=== PATIENT | female | born 1980 | race Caucasian/White ===

== ENCOUNTER → 2017-03-12 | Outpatient (CLI) | payer OTHER ==
[2017-03-12 16:07] LABS: Basophils % (A) 0 %; CH 30.4; CHCM 34.5; Eosinophils # (A) 0.2 k/uL (0-0.7); Eosinophils % (A) 3 %; HDW 2.85; HGB 13.1 gm/dL (11.4-16.0); Luc # (Auto) 0.09; Luc % (Auto) 1; Lymphocytes # (A) 1.9 k/uL (1.0-4.8); Lymphocytes % (A) 28 %; MCH 30.5 pg (25.0-35.0); MCHC 34.5 g/dL (31.0-37.0); MCV 88.5 fL (80.0-100.0); Mean Platelet Volume 7.1; Monocytes # (A) 0.2 k/uL (0-1.0); Monocytes % (A) 3 %; Neutrophils # (A) 4.4 k/uL (1.3-7.7); Neutrophils % (A) 65 %; WBC 6.8 k/uL (3.8-10.6); WBC (Perox) 6.75
[2017-03-12 18:29] LABS: Erythrocyte Sedimentation Rate 12 mm/hr (0-20)
== END | disposition home or self-care (01) ==
LOC: LABWHC1 15:44
PROVIDERS: ATTEND Internal Medicine Rheumatology
DX: M05.79 Rheumatoid arthritis with rheumatoid factor of multiple sites without organ or systems involvement (principal); M79.641 Pain in right hand; M79.642 Pain in left hand; Z34.90 Encounter for supervision of normal pregnancy, unspecified, unspecified trimester
CPT/HCPCS: 36415; 82955; 85025; 85652; 86140

== ENCOUNTER 2019-11-21 08:16 | Emergency (ER) | payer OTHER ==
[2019-11-21 08:27] VITALS: BP 143/71; PULSE 86; RESP 16; TEMP 98
--- NOTE | 2019-11-21 09:01 | XR ---
EXAMINATION TYPE: XR knee complete RT DATE OF EXAM: 11/21/2019 CLINICAL HISTORY: Twisting injury with pain TECHNIQUE: Three views of the right knee are obtained. COMPARISON: None. FINDINGS: There is no acute fracture/dislocation evident in right knee mild narrowing medial tibiofe moral and patellofemoral compartments. The overlying soft tissue appears unremarkable. IMPRESSION: There is no acute fracture or dislocation in the right knee.
[2019-11-21] MEDS ORDERED: IBUPROFEN 600 MG TAB PO STA (09:04)
--- NOTE | 2019-11-21 09:14 | ED ---
General Adult HPI - General Chief complaint: Extremity Injury, Lower Stated complaint: knee injury/pain Time Seen by Provider: 11/21/19 08:29 Source: patient, RN notes reviewed, old records reviewed Mode of arrival: wheelchair Limitations: no limitations - History of Present Illness Initial comments: 39-year-old female presents with right knee injury. Patient was dancing with her children, fell and felt a pop in the posterior aspect of her right knee. She's had increased pain and swelling over the past 12 hours. Denies any other injury. Not on anticoagulation. Denies numbness or tingling in the foot. She does have some pain radiating down the calf. She has been ambulatory but has been limping.patient denies .patient denies - Related Data Home Medications Medication Instructions Recorded Confirmed Acetaminophen Tab [Tylenol Tab] 500 mg PO DAILY PRN 04/29/16 06/21/16 Adalimumab [Humira Crohn's] 40 mg SQ Q14D 04/29/16 06/21/16 Pnv,Calcium 72/Iron/Folic Acid 1 tab PO DAILY 04/29/16 06/21/16 [ Plus Tablet] valACYclovir HCL [Valtrex] 500 mg PO DAILY PRN 04/29/16 06/21/16 Cetirizine HCl [Zyrtec] 10 mg PO DAILY 06/21/16 06/21/16 Pseudoephedrine [Sudafed] 30 mg PO Q6H 06/21/16 06/21/16 Ranitidine HCl [Zantac] 150 mg PO HS 06/21/16 06/21/16 Previous Rx's Medication Instructions Recorded Ibuprofen [Motrin] 600 mg PO Q8HR PRN #24 tab 11/21/19 Allergies Allergy/AdvReac Type Severity Reaction Status Date / Time aspirin AdvReac Petechiae Verified 11/21/19 08:27 Review of Systems ROS Statement: Those systems with pertinent positive or pertinent negative responses have been documented in the HPI. ROS Other: All systems not noted in ROS Statement are negative. Past Medical History Past Medical History: Asthma History of Any Multi-Drug Resistant Organisms: None Reported Additional Past Surgical History / Comment(s): ureter stent, nasal surgery, labial hematoma removal Past Psychological History: No Psychological Hx Reported Smoking Status: Never smoker Past Alcohol Use History: None Reported Past Drug Use History: None Reported General Exam Limitations: no limitations General appearance: alert, in no apparent distress Head exam: Present: atraumatic, normocephalic Eye exam: Present: normal appearance, PERRL, EOMI ENT exam: Present: normal exam Neck exam: Present: normal inspection. Absent: tenderness, meningismus Respiratory exam: Present: normal lung sounds bilaterally. Absent: respiratory distress, wheezes Cardiovascular Exam: Present: regular rate, normal rhythm GI/Abdominal exam: Present: soft. Absent: distended, tenderness Extremities exam: Present: other (right knee: Pain with range of motion of the posterior aspect of the knee, distal hamstring, patient does have extension and flexion at the knee. Distal pulses are intact. No effusion, and knee stable) Neurological exam: Present: alert, oriented X3, CN II-XII intact Psychiatric exam: Present: normal affect, normal mood Skin exam: Present: warm, dry, intact. Absent: cyanosis, diaphoretic Course Vital Signs 11/21/19 08:26 Temperature 98.0 F Pulse Rate 86 Respiratory 16 Rate Blood Pressure 143/71 O2 Sat by Pulse 98 Oximetry Medical Decision Making - Medical Decision Making 39-year-old female with posterior knee pain. Patient states she did feel a popping sensation in her knee. Knee is stable on exam with range of motion she has some tenderness in the posterior aspect of the knee. No joint effusion. Distal pulses intact. X-ray negative for fracture or acute bony abnormality. She is placed in knee immobilizer and given Motrin for pain. She will follow-up with orthopedics. Disposition Clinical Impression: Knee sprain Disposition: HOME SELF-CARE Condition: Good Instructions (If sedation given, give patient instructions): Knee Sprain (ED) Prescriptions: Ibuprofen [Motrin] 600 mg PO Q8HR PRN #24 tab PRN Reason: Pain Is patient prescribed a controlled substance at d/c from ED?: No Referrals: Erick Enriquez DO [Primary Care Provider] - 1-2 days Shayan Coleman MD [Medical Doctor] - 1-2 days Time of Disposition: 09:14
== END 2019-11-21 09:20 | disposition home or self-care (01) ==
LOC: EC 08:16
DX: S83.91XA Sprain of unspecified site of right knee, initial encounter (principal); Z88.6 Allergy status to analgesic agent; W18.39XA Other fall on same level, initial encounter; Y93.41 Activity, dancing
CPT/HCPCS: 73562; 99284; 29505; L1830

== ENCOUNTER 2022-10-07 21:57 | Emergency (ER) | payer OTHER ==
[2022-10-07] MEDS ORDERED: MORPHINE SULFATE 4 MG/ML SYRINGE IV STA (22:44)
[2022-10-07] MEDS ORDERED: ONDANSETRON 4 MG/2 ML VIAL IVP STA (22:44)
[2022-10-07] MEDS ORDERED: SODIUM CHLORIDE 0.9% 1,000 ML IV STA (22:44)
--- NOTE | 2022-10-07 22:48 | ED ---
Nausea/Vomiting/Diarrhea HPI - General Chief complaint: Nausea/Vomiting/Diarrhea Stated complaint: ABD pain,vomiting Time Seen by Provider: 10/07/22 22:10 Source: patient Mode of arrival: ambulatory Limitations: no limitations - History of Present Illness Initial comments: This patient is a 41-year-old woman who presents evaluation for upper abdominal pain, nausea and vomiting. Patient states she has been having symptoms like this going on since April. Sudhakar's episode started about 4-5 hours ago after she had eaten. She describes upper abdominal pain that is severe, aching, and has improved somewhat since the onset. She also has a number of rounds of vomiting. No hematemesis. She does occasionally have diarrhea associated with any symptoms. MD complaint: nausea, vomiting, abdominal pain -: month(s) Description of Vomiting: food contents Location: LUQ, RUQ Radiation: none Severity: severe Quality: aching Consistency: now resolved (Partially) Improves with: none Worsens with: eating Associated Symptoms: nausea/vomiting - Related Data Home Medications Medication Instructions Recorded Confirmed Acetaminophen Tab [Tylenol Tab] 500 mg PO DAILY PRN 04/29/16 06/21/16 Adalimumab [Humira Crohn's] 40 mg SQ Q14D 04/29/16 06/21/16 Pnv,Calcium 72/Iron/Folic Acid 1 tab PO DAILY 04/29/16 06/21/16 [ Plus Tablet] valACYclovir HCL [Valtrex] 500 mg PO DAILY PRN 04/29/16 06/21/16 Cetirizine HCl [Zyrtec] 10 mg PO DAILY 06/21/16 06/21/16 Pseudoephedrine [Sudafed] 30 mg PO Q6H 06/21/16 06/21/16 Ranitidine HCl [Zantac] 150 mg PO HS 06/21/16 06/21/16 Previous Rx's Medication Instructions Recorded Ibuprofen [Motrin] 600 mg PO Q8HR PRN #24 tab 11/21/19 Pantoprazole [Protonix] 40 mg PO DAILY #10 tab 10/08/22 Allergies Allergy/AdvReac Type Severity Reaction Status Date / Time aspirin AdvReac Petechiae Verified 10/07/22 22:02 Review of Systems ROS Statement: Those systems with pertinent positive or pertinent negative responses have been documented in the HPI. ROS Other: All systems not noted in ROS Statement are negative. Constitutional: Denies: fever, chills, weakness Respiratory: Denies: cough, dyspnea Cardiovascular: Denies: chest pain, palpitations, edema, syncope Gastrointestinal: Reports: abdominal pain, nausea, vomiting, diarrhea. Denies: constipation, hematemesis, melena, hematochezia Genitourinary: Denies: dysuria, hematuria Musculoskeletal: Denies: back pain Skin: Denies: rash Neurological: Denies: headache, weakness, numbness Past Medical History Past Medical History: Asthma History of Any Multi-Drug Resistant Organisms: None Reported Additional Past Surgical History / Comment(s): ureter stent, nasal surgery, labial hematoma removal Past Psychological History: No Psychological Hx Reported Smoking Status: Never smoker Past Alcohol Use History: Occasional Past Drug Use History: None Reported General Exam Limitations: no limitations General appearance: alert, in no apparent distress Head exam: Present: atraumatic, normocephalic Eye exam: Present: normal appearance. Absent: scleral icterus, conjunctival injection ENT exam: Present: normal oropharynx Neck exam: Present: normal inspection Respiratory exam: Present: normal lung sounds bilaterally. Absent: respiratory distress, wheezes, rales, rhonchi, stridor Cardiovascular Exam: Present: regular rate, normal rhythm, normal heart sounds. Absent: systolic murmur, diastolic murmur, rubs, gallop GI/Abdominal exam: Present: soft, tenderness, normal bowel sounds. Absent: distended, guarding, rebound, rigid, mass, pulsatile mass Extremities exam: Present: normal inspection, normal capillary refill. Absent: pedal edema, calf tenderness Back exam: Present: normal inspection. Absent: CVA tenderness (R), CVA tenderness (L) Neurological exam: Present: alert Skin exam: Present: warm, dry, intact, normal color. Absent: rash Course Vital Signs 10/07/22 10/08/22 22:00 02:19 Temperature 98.6 F Pulse Rate 86 64 Respiratory 20 16 Rate Blood Pressure 149/88 108/76 O2 Sat by Pulse 97 99 Oximetry Medical Decision Making - Lab Data Result diagrams: 10/07/22 22:49 10/07/22 22:49 Lab Results 10/07/22 10/07/22 10/08/22 Range/Units 22:49 22:49 02:19 WBC 10.4 (3.8-10.6) k/uL RBC 4.64 (3.80-5.40) m/uL Hgb 14.0 (11.4-16.0) gm/dL Hct 40.3 (34.0-46.0) % MCV 86.8 (80.0-100.0) fL MCH 30.3 (25.0-35.0) pg MCHC 34.9 (31.0-37.0) g/dL RDW 12.8 (11.5-15.5) % Plt Count 275 (150-450) k/uL MPV 8.4 Neutrophils % 79 % Lymphocytes % 15 % Monocytes % 4 % Eosinophils % 1 % Basophils % 0 % Neutrophils # 8.2 H (1.3-7.7) k/uL Lymphocytes # 1.6 (1.0-4.8) k/uL Monocytes # 0.4 (0-1.0) k/uL Eosinophils # 0.1 (0-0.7) k/uL Basophils # 0.0 (0-0.2) k/uL Sodium 135 L (137-145) mmol/L Potassium 4.1 (3.5-5.1) mmol/L Chloride 104 (98-107) mmol/L Carbon Dioxide 23 (22-30) mmol/L Anion Gap 8 mmol/L BUN 17 (7-17) mg/dL Creatinine 0.74 (0.52-1.04) mg/dL Est GFR (CKD-EPI)AfAm >90 (>60 ml/min/1.73 sqM) Est GFR (CKD-EPI)NonAf >90 (>60 ml/min/1.73 sqM) Glucose 117 H (74-99) mg/dL Calcium 9.1 (8.4-10.2) mg/dL Total Bilirubin 0.3 (0.2-1.3) mg/dL AST 26 (14-36) U/L ALT 23 (4-34) U/L Alkaline Phosphatase 74 (38-126) U/L Total Protein 7.5 (6.3-8.2) g/dL Albumin 4.4 (3.5-5.0) g/dL Amylase 61 (30-110) U/L Lipase 44 (23-300) U/L Urine Color Yellow Urine Appearance Turbid H (Clear) Urine pH 5.5 (5.0-8.0) Ur Specific [place] 1.032 (1.001-1.035) Urine Protein 1+ H (Negative) Urine Glucose (UA) Negative (Negative) Urine Ketones Trace H (Negative) Urine Blood Negative (Negative) Urine Nitrite Negative (Negative) Urine Bilirubin Negative (Negative) Urine Urobilinogen <2.0 (<2.0) mg/dL Ur Leukocyte Esterase Negative (Negative) Urine RBC 1 (0-5) /hpf Urine WBC 8 H (0-5) /hpf Ur Squamous Epith Cells 34 H (0-4) /hpf Urine Bacteria Moderate H (None) /hpf Urine Mucus Many H (None) /hpf Disposition Clinical Impression: Abdominal pain Disposition: HOME SELF-CARE Condition: Good Instructions (If sedation given, give patient instructions): Abdominal Pain (ED) Additional Instructions: As we discussed, follow-up with the surgeon to discuss having a HIDA scan. Return if there is worsening in anyway. Prescriptions: Pantoprazole [Protonix] 40 mg PO DAILY #10 tab Is patient prescribed a controlled substance at d/c from ED?: No Referrals: Erick Enriquez DO [Primary Care Provider] - 1-2 days Blayne Hdz MD [STAFF PHYSICIAN] - 1-2 days
[2022-10-07 23:12] LABS: Basophils % (A) 0 %; Eosinophils # (A) 0.1 k/uL (0-0.7); Eosinophils % (A) 1 %; HCT 40.3 % (34.0-46.0); Lymphocytes # (A) 1.6 k/uL (1.0-4.8); Lymphocytes % (A) 15 %; MCH 30.3 pg (25.0-35.0); MCHC 34.9 g/dL (31.0-37.0); MCV 86.8 fL (80.0-100.0); Mean Platelet Volume 8.4; Monocytes # (A) 0.4 k/uL (0-1.0); Monocytes % (A) 4 %; Neutrophils # (A) 8.2 k/uL (1.3-7.7); Neutrophils % (A) 79 %; Platelet Count 275 k/uL (150-450); RBC 4.64 m/uL (3.80-5.40); RDW 12.8 % (11.5-15.5); WBC 10.4 k/uL (3.8-10.6)
[2022-10-07 23:41] LABS: ALT 23 U/L (4-34); AST 26 U/L (14-36); African American GFR (CKD) >90 (>60 ml/min/1.73 sqM); Albumin 4.4 g/dL (3.5-5.0); Alkaline Phosphatase 74 U/L (38-126); Amylase 61 U/L (30-110); Anion Gap 8 mmol/L; Blood Urea Nitrogen 17 mg/dL (7-17); Calcium 9.1 mg/dL (8.4-10.2); Carbon Dioxide 23 mmol/L (22-30); Chloride 104 mmol/L (98-107); Glucose 117 mg/dL (74-99); Lipase 44 U/L (23-300); Non-African American GFR(CKD) >90 (>60 ml/min/1.73 sqM); Potassium 4.1 mmol/L (3.5-5.1); Sodium 135 mmol/L (137-145); Total Bilirubin 0.3 mg/dL (0.2-1.3); Total Protein 7.5 g/dL (6.3-8.2)
--- NOTE | 2022-10-08 00:02 | US ---
EXAMINATION TYPE: US abdomen limited DATE OF EXAM: 10/07/2022 COMPARISON: NONE CLINICAL HISTORY: attention RUQ. RUQ pain x 6 months, worsened 5 hours ago TECHNIQUE: Multiple sonographic images of the right upper quadrant are obtained. FINDINGS: EXAM MEASUREMENTS: Liver Length: 15.8 cm Gallbladder Wall: 0.18 cm CBD: 0.29 cm Right Kidney: 9.6 x 3.9 x 4.3 cm SCULPTURE CONSERVATOR NOTES: Pancreas: Obscured by bowel gas Liver: Heterogeneous Gallbladder: One gallstone seen measuring 1.5cm Evidence for sonographic Meléndez's sign: No CBD: wnl Right Kidney: wnl IMPRESSION: There is single large gallstone. No dilated ducts.
[2022-10-08] MEDS ORDERED: MAG HYDROX/AL HYDROX/SIMETH 30 ML, HYOSCYAMINE ELIXIR 10 ML, LIDOCAINE VISCOUS 2% 10 ML PO STA ×3 (00:14)
[2022-10-08 02:21] VITALS: RESP 16
[2022-10-08] MEDS ORDERED: ONDANSETRON 4 MG/2 ML VIAL IVP STA (02:36)
[2022-10-08 02:58] LABS: Appearance,Urine Turbid (Clear); Bacteria,Urine Moderate /hpf; Bilirubin,Urine Negative (Negative); Blood,Urine Negative (Negative); Color,Urine Yellow; Glucose,Urine (UA) Negative (Negative); Ketones,Urine Trace (Negative); Leukocyte Esterase,Urine Negative (Negative); Mucus,Urine Many /hpf; Nitrite,Urine Negative (Negative); PH, Urine 5.5 (5.0-8.0); Protein,Urine 1+ (Negative); RBC,Urine 1 /hpf (0-5); Specific Gravity,Urine 1.032 (1.001-1.035); Squamous Epithelial Cell,Urine 34 /hpf (0-4); Urobilinogen,Urine <2.0 mg/dL (<2.0); WBC,Urine 8 /hpf (0-5)
[2022-10-08] MEDS ORDERED: SODIUM CHLORIDE 0.9% 1,000 ML IV ONE (03:45)
[2022-10-08 06:07] VITALS: BP 115/82; PULSE 72; TEMP 97.8
== END 2022-10-08 06:09 | disposition home or self-care (01) ==
LOC: EC 21:57
DX: R10.10 Upper abdominal pain, unspecified (principal); J45.909 Unspecified asthma, uncomplicated; Z88.6 Allergy status to analgesic agent
CPT/HCPCS: 36415; 80053; 82150; 83690; 85025; 81001; 76705; 99284; 96374; 96375; 96376; 96361 ×3; J2270; J2405 ×2

== ENCOUNTER 2022-10-19 07:10 | Day surgery (SDC) | payer OTHER ==
[2022-10-16 10:12] VITALS: BMI 32.1
[~2022-10-19 07:10] MED LIST: ACETAMINOPHEN TAB 500 MG TAB PO PRN; DEXAMETHASONE SOD PHOSPHATE 4 MG/ML 1 ML VIAL IV ONE; HEPARIN SODIUM,PORCINE/PF 5,000 UNIT/0.5 ML SYRINGE SQ PRN; HYDROmorphone 0.5 MG/0.5 ML SYRINGE IVP PRN; LIDOCAINE 1% (10MG/ML) FOR IV START INTRADERMA PRN; MIDAZOLAM 2 MG/2 ML VIAL IV PRN; ONDANSETRON 4 MG/2 ML VIAL IVP ONE
[2022-10-19] MEDS ORDERED: LACTATED RINGERS 1,000 ML IV ONE ×2 (07:26→11:03)
[2022-10-19] MEDS ORDERED: DEXAMETHASONE SOD PHOSPHATE 4 MG/ML 1 ML VIAL IVP ONE (07:49)
[2022-10-19] MEDS ORDERED: ONDANSETRON 4 MG/2 ML VIAL IVP ONE ×2 (07:50→10:40)
--- NOTE | 2022-10-19 07:54 | P.GSHP ---
History of Present Illness H&P Date: 10/19/22 Chief Complaint: Right upper quadrant pain, gallstones This is a 42-year-old female who's had complaints of right upper quadrant pain. She is recently found have gallstones. She presents today for laparoscopic cholecystectomy Past Medical History Past Medical History: Asthma, Fibromyalgia, GERD/Reflux, Osteoarthritis (OA) Additional Past Medical History / Comment(s): one gallstone, hx ulcer, hiatal hernia, diarrhea/constipation, hx kidney stones, hx frequent UTI's, tinnitus History of Any Multi-Drug Resistant Organisms: None Reported Past Surgical History: Section, Tubal Ligation Additional Past Surgical History / Comment(s): ureter stent, nasal surgery, labial hematoma removal, lasik eye surgery Past Anesthesia/Blood Transfusion Reactions: Previous Problems w/ Anesthesia, Postoperative Nausea & Vomiting (PONV) Additional Past Anesthesia/Blood Transfusion Reaction / Comment(s): spinal with C/S "vomiting, passed out, heart rate dropped-needed resuscitation" Smoking Status: Never smoker - Past Family History Mother Family Medical History: Cancer Additional Family Medical History / Comment(s): lung Medications and Allergies Home Medications Medication Instructions Recorded Confirmed Type valACYclovir HCL [Valtrex] 500 mg PO BID PRN 04/29/16 10/19/22 History Cetirizine HCl [Zyrtec] 10 mg PO DAILY 06/21/16 10/19/22 History ALPRAZolam [Xanax] 0.5 mg PO DAILY PRN 10/16/22 10/19/22 History Ibuprofen [Motrin] 800 mg PO DAILY PRN 10/16/22 10/19/22 History Multivitamins, Thera [Multivitamin 1 tab PO DAILY 10/16/22 10/19/22 History (formulary)] Sertraline [Zoloft] 100 mg PO HS 10/16/22 10/19/22 History Allergies Allergy/AdvReac Type Severity Reaction Status Date / Time aspirin AdvReac Petechiae Verified 10/19/22 07:35 Surgical - Exam Vital Signs Temp Pulse Resp BP Pulse Ox 97.8 F 69 16 115/83 98 10/19/22 07:30 10/19/22 07:30 10/19/22 07:30 10/19/22 07:30 10/19/22 07:30 - General well developed, well nourished, no distress - Eyes PERRL - ENT normal pinna - Neck no masses - Respiratory normal expansion - Cardiovascular Rhythm: regular - Abdomen Abdomen: soft, non tender Assessment and Plan Assessment: Right upper quadrant pain Cholelithiasis We'll perform laparoscopic cholecystectomy
[2022-10-19] MEDS ORDERED: KETOROLAC 15 MG/ML 1 ML VIAL ONE (07:59)
[2022-10-19] MEDS ORDERED: PROPOFOL 10 MG/ML 20 ML VIAL IV ONE (07:59)
[2022-10-19] MEDS ORDERED: LIDOCAINE 2% INJ 20 MG/ML (2 ML VIAL) ONE (07:59)
[2022-10-19] MEDS ORDERED: ATROPINE SULFATE 0.1 MG/ML 10ML SYRINGE ONE (07:59)
[2022-10-19] MEDS ORDERED: NEOSTIGMINE 1 MG/ML 10 ML VIAL ONE (07:59)
[2022-10-19] MEDS ORDERED: ROCURONIUM 10 MG/ML (5 ML VIAL) IV ONE (07:59)
[2022-10-19] MEDS ORDERED: MIDAZOLAM 2 MG/2 ML VIAL ONE (07:59)
[2022-10-19] MEDS ORDERED: SUCCINYLCHOLINE CHLORIDE 200 MG/10 ML VIAL IV ONE (07:59)
[2022-10-19] MEDS ORDERED: fentaNYL (PF) 50 MCG/ML 2 ML AMP ONE (07:59)
[2022-10-19] MEDS ORDERED: GLYCOPYRROLATE 0.2 MG/ML 2 ML VIAL ONE (07:59)
[2022-10-19] MEDS ORDERED: BUPIVACAIN-EPI 0.25%-1:200,000 30 ML VIAL SQ ONE ×2 (08:00→08:19)
--- NOTE | 2022-10-19 08:40 | P.OP ---
Date of Procedure: 10/19/22 Preoperative Diagnosis: Cholecystitis Cholelithiasis Postoperative Diagnosis: Cholecystitis Cholelithiasis Procedure(s) Performed: Laparoscopic cholecystectomy Anesthesia: BRIAN Surgeon: Blayne Hdz Pathology: other (Gallbladder) Condition: stable Disposition: PACU Description of Procedure: TThe patient was placed on the operating table. The patient received a general endotracheal tube anesthesia. The patients abdomen was prepped and draped in the usual sterile fashion. Through an infraumbilical stab incision, the fascia of the anterior abdominal wall was grasped with a pair of Kochers and then the Veress needle was placed in the peritoneal cavity. Position of the Veress needle was confirmed with positive drop test. The abdomen was then insufflated. After adequate insufflation, the 10 mm trocar was placed in the peritoneal cavity. Following this the laparoscope was placed in the peritoneal cavity. The patient was placed in the head-up, right side up position and then a 5 mm trocar was placed in the right lateral and right subcostal position under direct visualization. A 8 mm trocar was placed in the epigastric position. The gallbladder was grasped in the fundus and infundibulum. Traction on the gallbladder was placed in the lateral and the cephalad positions. The triangle of Calot was visualized.. The cystic duct was bluntly dissected until the union of the cystic duct and common bile duct was seen. A critical view of safety was achieved. The cystic duct was then divided and sealed with the Harmonic scissors. A PDS Endoloop was then placed throughout the cystic duct stump. The cystic artery divided and sealed with the Harmonic scissors. The gallbladder was then removed from the liver bed using Harmonic scissors. The gallbladder was then extracted through the epigastric port site. Operative field was checked for any bleeding spots and Harmonic scissors was used to coagulate the liver bed. The abdomen was irrigated. The trocars were removed. The skin was closed using interrupted 3-0 Vicryl suture. Dermabond dressing were applied. The patient tolerated the procedure well.
[2022-10-19 08:54] VITALS: TEMP 97.2
[2022-10-19] MEDS: LACTATED RINGERS 1,000 ML IV SCH ×2 (09:00→09:16)
[2022-10-19] MEDS ORDERED: SIMETHICONE 80 MG CHEWABLE PO ONE (09:35)
[2022-10-19 09:45] VITALS: RESP 16
[2022-10-19] MEDS ORDERED: ONDANSETRON 4 MG/2 ML VIAL ONE (10:35)
[2022-10-19 11:29] VITALS: BP 135/77; PULSE 72
== END 2022-10-19 12:07 | disposition home or self-care (01) ==
LOC: OR 07:10
PROVIDERS: ATTEND Surgery
DX: K80.10 Calculus of gallbladder with chronic cholecystitis without obstruction (principal); M19.90 Unspecified osteoarthritis, unspecified site; M79.7 Fibromyalgia; J45.909 Unspecified asthma, uncomplicated
CPT/HCPCS: 81025; 47562; J1100; J0690; J2405; J1170; J1644; 88304

== ENCOUNTER 2022-10-24 02:27 | Emergency (ER) | payer OTHER ==
[2022-10-24 02:43] VITALS: RESP 16
[2022-10-24] MEDS ORDERED: SODIUM CHLORIDE 0.9% 1,000 ML IV STA (02:59)
[2022-10-24] MEDS ORDERED: methylPREDNISolone SOD SUCCI 125 MG/2 ML VIAL IV STA (03:02)
--- NOTE | 2022-10-24 03:02 | ED ---
General Adult HPI - General Chief complaint: Fever Stated complaint: Post-op fever, rash Time Seen by Provider: 10/24/22 02:36 Source: patient, RN notes reviewed Mode of arrival: ambulatory Limitations: no limitations - History of Present Illness Initial comments: 42-year-old female presents to the emergency Department with complaints of fever and rash, onset this evening. States she also has a sore throat and some congestion. Patient reports she had her gallbladder removed on Wednesday and has been doing very well since. States she has been able to get out of the house therefore reports likely sick contacts. Has taken two doses of allergy medicine for the rash today with improvement in itching. Denies difficulty swallowing, chest pain, shortness of breath, abdominal discomfort, nausea, vomiting, diarrhea, or dysuria. - Related Data Home Medications Medication Instructions Recorded Confirmed valACYclovir HCL [Valtrex] 500 mg PO BID PRN 04/29/16 10/19/22 Cetirizine HCl [Zyrtec] 10 mg PO DAILY 06/21/16 10/19/22 ALPRAZolam [Xanax] 0.5 mg PO DAILY PRN 10/16/22 10/19/22 Ibuprofen [Motrin] 800 mg PO DAILY PRN 10/16/22 10/19/22 Multivitamins, Thera [Multivitamin 1 tab PO DAILY 10/16/22 10/19/22 (formulary)] Sertraline [Zoloft] 100 mg PO HS 10/16/22 10/19/22 Previous Rx's Medication Instructions Recorded Acetaminophen Tab [Tylenol] 650 mg PO Q6H #30 tab 10/19/22 Docusate [Colace] 100 mg PO BID #20 capsule 10/19/22 Ibuprofen [Motrin] 600 mg PO Q6HR PRN #40 tab 10/19/22 oxyCODONE HCL [OxyIR] 5 mg PO Q6H PRN 3 Days #10 tab 10/19/22 predniSONE 50 mg PO DAILY #5 tab 10/24/22 Allergies Allergy/AdvReac Type Severity Reaction Status Date / Time aspirin AdvReac Petechiae Verified 10/24/22 02:30 Review of Systems ROS Statement: Those systems with pertinent positive or pertinent negative responses have been documented in the HPI. ROS Other: All systems not noted in ROS Statement are negative. Past Medical History Past Medical History: Asthma, Fibromyalgia, GERD/Reflux, Osteoarthritis (OA) Additional Past Medical History / Comment(s): one gallstone, hx ulcer, hiatal hernia, diarrhea/constipation, hx kidney stones, hx frequent UTI's, tinnitus History of Any Multi-Drug Resistant Organisms: None Reported Past Surgical History: Section, Cholecystectomy, Tubal Ligation Additional Past Surgical History / Comment(s): ureter stent, nasal surgery, labial hematoma removal, lasik eye surgery Past Anesthesia/Blood Transfusion Reactions: Previous Problems w/ Anesthesia, Postoperative Nausea & Vomiting (PONV) Additional Past Anesthesia/Blood Transfusion Reaction / Comment(s): spinal with C/S "vomiting, passed out, heart rate dropped-needed resuscitation" Past Psychological History: Anxiety Smoking Status: Never smoker Past Alcohol Use History: None Reported Past Drug Use History: None Reported - Past Family History Mother Family Medical History: Cancer Additional Family Medical History / Comment(s): lung General Exam Limitations: no limitations General appearance: alert, in no apparent distress ENT exam: Present: normal exam, normal oropharynx, mucous membranes moist, TM's normal bilaterally Expanded Throat exam: normal inspection. negative: tonsillar erythema Neck exam: Present: normal inspection, full ROM. Absent: tenderness, meningismus, lymphadenopathy Respiratory exam: Present: normal lung sounds bilaterally. Absent: respiratory distress, wheezes, rales, rhonchi, stridor Cardiovascular Exam: Present: normal rhythm, tachycardia, normal heart sounds. Absent: systolic murmur, diastolic murmur, rubs, gallop, clicks GI/Abdominal exam: Present: soft, normal bowel sounds, other (three incision site remain covered with adhesive dressings. Surrounding skin is non- erythematous. Patient does have scattered macular rash on abdomen and anterior thighs). Absent: distended, tenderness, guarding, rebound, rigid Extremities exam: Present: normal inspection, full ROM, normal capillary refill. Absent: tenderness, pedal edema, joint swelling, calf tenderness Back exam: Absent: CVA tenderness (R), CVA tenderness (L) Neurological exam: Present: alert, oriented X3, CN II-XII intact Psychiatric exam: Present: normal affect, normal mood Skin exam: Present: warm, dry, normal color, rash Expanded Type of lesion: Present: rash Distribution of rash: chest, abdomen, other (bilateral anterior upper legs) Description of rash: Present: macular Course Vital Signs 11/26/22 11/26/22 02:30 02:41 Temperature 98.8 F 100 F H Pulse Rate 117 H 100 Respiratory 18 16 Rate Blood Pressure 120/76 111/79 O2 Sat by Pulse 98 98 Oximetry - Reevaluation(s) Reevaluation #1: 10/24/22 03:45 Upon reevaluation, patient is resting at this time. States she is feeling somewhat improved. Discussed results of laboratory findings available at this point. She is currently on her menstrual cycle which accounts for the large amount of blood in urinalysis. The remainder of laboratory studies are pending. We will reevaluate shortly. Medical Decision Making - Medical Decision Making This is a nontoxic, well-appearing 42-year-old female who presents to the emergency department in no acute distress. She is postop cholecystectomy with onset of fever and rash this evening. Additional symptoms include nasal congestion and pharyngitis. Upon exam, patient has a scattered macular rash light pink in color on chest, abdomen, and upper thighs. Her abdomen is soft and nontender. Incision sites are not erythematous. Laboratory studies were obtained and show mild dehydration with a sodium 134. Patient was given 1 L of IV fluids and a dose of Solu-Medrol for her rash. Motrin was given prior to departure for elevated temperature. Is scheduled to follow up with her surgeon on Wednesday. Strict return parameters were discussed with patient. She verbalizes understanding and agrees with this plan. Attending: Merry. - Lab Data Result diagrams: 10/24/22 03:15 10/24/22 03:15 Lab Results 10/24/22 10/24/22 10/24/22 Range/Units 03:14 03:14 03:15 WBC 9.4 (3.8-10.6) k/uL RBC 4.17 (3.80-5.40) m/uL Hgb 12.7 (11.4-16.0) gm/dL Hct 36.4 (34.0-46.0) % MCV 87.3 (80.0-100.0) fL MCH 30.5 (25.0-35.0) pg MCHC 34.9 (31.0-37.0) g/dL RDW 13.2 (11.5-15.5) % Plt Count 195 (150-450) k/uL MPV 8.5 Neutrophils % 86 % Lymphocytes % 7 % Monocytes % 2 % Eosinophils % 4 % Basophils % 0 % Neutrophils # 8.1 H (1.3-7.7) k/uL Lymphocytes # 0.6 L (1.0-4.8) k/uL Monocytes # 0.2 (0-1.0) k/uL Eosinophils # 0.4 (0-0.7) k/uL Basophils # 0.0 (0-0.2) k/uL Sodium (137-145) mmol/L Potassium (3.5-5.1) mmol/L Chloride (98-107) mmol/L Carbon Dioxide (22-30) mmol/L Anion Gap mmol/L BUN (7-17) mg/dL Creatinine (0.52-1.04) mg/dL Est GFR (CKD-EPI)AfAm (>60 ml/min/1.73 sqM) Est GFR (CKD-EPI)NonAf (>60 ml/min/1.73 sqM) Glucose (74-99) mg/dL Calcium (8.4-10.2) mg/dL Total Bilirubin (0.2-1.3) mg/dL AST (14-36) U/L ALT (4-34) U/L Alkaline Phosphatase (38-126) U/L Total Protein (6.3-8.2) g/dL Albumin (3.5-5.0) g/dL Urine Color Urine Appearance (Clear) Urine pH (5.0-8.0) Ur Specific [place] (1.001-1.035) Urine Protein (Negative) Urine Glucose (UA) (Negative) Urine Ketones (Negative) Urine Blood (Negative) Urine Nitrite (Negative) Urine Bilirubin (Negative) Urine Urobilinogen (<2.0) mg/dL Ur Leukocyte Esterase (Negative) Urine RBC (0-5) /hpf Urine WBC (0-5) /hpf Ur Squamous Epith Cells (0-4) /hpf Urine Bacteria (None) /hpf Urine Mucus (None) /hpf Coronavirus (PCR) Not Detected (Not Detectd) Influenza Type A RNA Not Detected (Not Detectd) Influenza Type B (PCR) Not Detected (Not Detectd) 10/24/22 10/24/22 Range/Units 03:15 03:17 WBC (3.8-10.6) k/uL RBC (3.80-5.40) m/uL Hgb (11.4-16.0) gm/dL Hct (34.0-46.0) % MCV (80.0-100.0) fL MCH (25.0-35.0) pg MCHC (31.0-37.0) g/dL RDW (11.5-15.5) % Plt Count (150-450) k/uL MPV Neutrophils % % Lymphocytes % % Monocytes % % Eosinophils % % Basophils % % Neutrophils # (1.3-7.7) k/uL Lymphocytes # (1.0-4.8) k/uL Monocytes # (0-1.0) k/uL Eosinophils # (0-0.7) k/uL Basophils # (0-0.2) k/uL Sodium 134 L (137-145) mmol/L Potassium 4.4 (3.5-5.1) mmol/L Chloride 102 (98-107) mmol/L Carbon Dioxide 26 (22-30) mmol/L Anion Gap 6 mmol/L BUN 13 (7-17) mg/dL Creatinine 0.79 (0.52-1.04) mg/dL Est GFR (CKD-EPI)AfAm >90 (>60 ml/min/1.73 sqM) Est GFR (CKD-EPI)NonAf >90 (>60 ml/min/1.73 sqM) Glucose 98 (74-99) mg/dL Calcium 9.3 (8.4-10.2) mg/dL Total Bilirubin 0.3 (0.2-1.3) mg/dL AST 36 (14-36) U/L ALT 52 H (4-34) U/L Alkaline Phosphatase 83 (38-126) U/L Total Protein 6.9 (6.3-8.2) g/dL Albumin 4.1 (3.5-5.0) g/dL Urine Color Yellow Urine Appearance Clear (Clear) Urine pH 6.0 (5.0-8.0) Ur Specific [place] 1.016 (1.001-1.035) Urine Protein Trace H (Negative) Urine Glucose (UA) Negative (Negative) Urine Ketones Negative (Negative) Urine Blood Large H (Negative) Urine Nitrite Negative (Negative) Urine Bilirubin Negative (Negative) Urine Urobilinogen <2.0 (<2.0) mg/dL Ur Leukocyte Esterase Negative (Negative) Urine RBC >182 H (0-5) /hpf Urine WBC 9 H (0-5) /hpf Ur Squamous Epith Cells 1 (0-4) /hpf Urine Bacteria Rare H (None) /hpf Urine Mucus Rare H (None) /hpf Coronavirus (PCR) (Not Detectd) Influenza Type A RNA (Not Detectd) Influenza Type B (PCR) (Not Detectd) Disposition Clinical Impression: Fever, Viral upper respiratory infection Disposition: HOME SELF-CARE Condition: Stable Instructions (If sedation given, give patient instructions): Fever in Adults (ED), Viral Syndrome (ED) Additional Instructions: Continue taking home medications as prescribed. Both Tylenol and Motrin can be used to treat fever. You are being prescribed a steroid for the rash. Continue to carefully monitor your temperature and track symptoms. If you develop any abdominal pain, chest pain, or difficulty breathing return to the emergency department immediately. Keep your follow-up appointment with Dr. Hdz as scheduled on Wednesday. Return to the emergency department with any new, concerning, or worsening condition. Prescriptions: predniSONE 50 mg PO DAILY #5 tab Is patient prescribed a controlled substance at d/c from ED?: No Referrals: Erick Enriquez DO [Primary Care Provider] - 1-2 days Time of Disposition: 04:37
[2022-10-24 03:32] LABS: Appearance,Urine Clear (Clear); Bacteria,Urine Rare /hpf; Bilirubin,Urine Negative (Negative); Blood,Urine Large (Negative); Color,Urine Yellow; Glucose,Urine (UA) Negative (Negative); Ketones,Urine Negative (Negative); Leukocyte Esterase,Urine Negative (Negative); Mucus,Urine Rare /hpf; Nitrite,Urine Negative (Negative); Protein,Urine Trace (Negative); RBC,Urine >182 /hpf (0-5); Specific Gravity,Urine 1.016 (1.001-1.035); Squamous Epithelial Cell,Urine 1 /hpf (0-4); Urobilinogen,Urine <2.0 mg/dL (<2.0); WBC,Urine 9 /hpf (0-5)
[2022-10-24 03:32] LABS: Basophils % (A) 0 %; Eosinophils # (A) 0.4 k/uL (0-0.7); Eosinophils % (A) 4 %; HCT 36.4 % (34.0-46.0); HGB 12.7 gm/dL (11.4-16.0); Lymphocytes # (A) 0.6 k/uL (1.0-4.8); Lymphocytes % (A) 7 %; MCH 30.5 pg (25.0-35.0); MCHC 34.9 g/dL (31.0-37.0); MCV 87.3 fL (80.0-100.0); Mean Platelet Volume 8.5; Monocytes # (A) 0.2 k/uL (0-1.0); Monocytes % (A) 2 %; Neutrophils # (A) 8.1 k/uL (1.3-7.7); Neutrophils % (A) 86 %; Platelet Count 195 k/uL (150-450); RBC 4.17 m/uL (3.80-5.40); RDW 13.2 % (11.5-15.5); WBC 9.4 k/uL (3.8-10.6)
[2022-10-24 03:51] LABS: ALT 52 U/L (4-34); AST 36 U/L (14-36); African American GFR (CKD) >90 (>60 ml/min/1.73 sqM); Albumin 4.1 g/dL (3.5-5.0); Alkaline Phosphatase 83 U/L (38-126); Anion Gap 6 mmol/L; Blood Urea Nitrogen 13 mg/dL (7-17); Calcium 9.3 mg/dL (8.4-10.2); Carbon Dioxide 26 mmol/L (22-30); Chloride 102 mmol/L (98-107); Glucose 98 mg/dL (74-99); Non-African American GFR(CKD) >90 (>60 ml/min/1.73 sqM); Potassium 4.4 mmol/L (3.5-5.1); Sodium 134 mmol/L (137-145); Total Bilirubin 0.3 mg/dL (0.2-1.3); Total Protein 6.9 g/dL (6.3-8.2)
[2022-10-24] MEDS ORDERED: IBUPROFEN 600 MG TAB PO STA (04:32)
[2022-10-24 04:45] VITALS: BP 115/78; PULSE 71; TEMP 98.9
== END 2022-10-24 04:51 | disposition home or self-care (01) ==
LOC: EC 02:27
DX: J06.9 Acute upper respiratory infection, unspecified (principal); F41.9 Anxiety disorder, unspecified; J45.909 Unspecified asthma, uncomplicated; M19.90 Unspecified osteoarthritis, unspecified site; Z88.6 Allergy status to analgesic agent; Z20.822 Contact with and (suspected) exposure to COVID-19; Z79.1 Long term (current) use of non-steroidal anti-inflammatories (NSAID)
CPT/HCPCS: 99283; 96374; 96361; 36415; 80053; 85025; 81001; 87040; 87502; 87635; J2930

== ENCOUNTER 2022-12-09 03:25 | Emergency (ER) | payer OTHER ==
[2022-12-09 03:35] VITALS: PULSE 77; TEMP 97.8
--- NOTE | 2022-12-09 03:46 | ED ---
Recheck HPI - General Chief Complaint: Abdominal Pain Stated Complaint: Abd Pain Time Seen by Provider: 12/09/22 03:30 Source: patient, RN notes reviewed, old records reviewed Mode of arrival: ambulatory Limitations: no limitations - History of Present Illness Initial Comments: This is a 42-year-old female to the emergency department for evaluation today. States she is presenting for evaluation regards to abdominal pain. Believes that it may be her gallbladder causing his pain will she has had recent gallbladder surgery.pain started yesterday yesterday generalized and diffuse in the middle of her belly. MD Complaint: other (Worsen prior symptoms, prior gallbladder removal) -: days(s) Returns Today for: Called Because of Abnormal Lab/Test, persistent/worsening pain related to initial visit Symptoms Since Prior Visit: worsening pain Context: planned re-check Associated Symptoms: abdominal pain Treatments Prior to Arrival: Given Pain Meds on - Related Data Home Medications Medication Instructions Recorded Confirmed valACYclovir HCL [Valtrex] 500 mg PO BID PRN 04/29/16 10/19/22 Cetirizine HCl [Zyrtec] 10 mg PO DAILY 06/21/16 10/19/22 ALPRAZolam [Xanax] 0.5 mg PO DAILY PRN 10/16/22 10/19/22 Ibuprofen [Motrin] 800 mg PO DAILY PRN 10/16/22 10/19/22 Multivitamins, Thera [Multivitamin 1 tab PO DAILY 10/16/22 10/19/22 (formulary)] Sertraline [Zoloft] 100 mg PO HS 10/16/22 10/19/22 Previous Rx's Medication Instructions Recorded Acetaminophen Tab [Tylenol] 650 mg PO Q6H #30 tab 10/19/22 Docusate [Colace] 100 mg PO BID #20 capsule 10/19/22 Ibuprofen [Motrin] 600 mg PO Q6HR PRN #40 tab 10/19/22 oxyCODONE HCL [OxyIR] 5 mg PO Q6H PRN 3 Days #10 tab 10/19/22 predniSONE 50 mg PO DAILY #5 tab 10/24/22 Allergies Allergy/AdvReac Type Severity Reaction Status Date / Time aspirin AdvReac Petechiae Verified 12/09/22 03:34 Review of Systems ROS Statement: Those systems with pertinent positive or pertinent negative responses have been documented in the HPI. ROS Other: All systems not noted in ROS Statement are negative. Past Medical History Past Medical History: Asthma, Fibromyalgia, GERD/Reflux, Osteoarthritis (OA) Additional Past Medical History / Comment(s): one gallstone, hx ulcer, hiatal hernia, diarrhea/constipation, hx kidney stones, hx frequent UTI's, tinnitus History of Any Multi-Drug Resistant Organisms: None Reported Past Surgical History: Section, Cholecystectomy, Tubal Ligation Additional Past Surgical History / Comment(s): ureter stent, nasal surgery, labial hematoma removal, lasik eye surgery Past Anesthesia/Blood Transfusion Reactions: Previous Problems w/ Anesthesia, Postoperative Nausea & Vomiting (PONV) Additional Past Anesthesia/Blood Transfusion Reaction / Comment(s): spinal with C/S "vomiting, passed out, heart rate dropped-needed resuscitation" Past Psychological History: Anxiety Smoking Status: Never smoker Past Alcohol Use History: None Reported Past Drug Use History: None Reported - Past Family History Mother Family Medical History: Cancer Additional Family Medical History / Comment(s): lung General Exam Limitations: no limitations General appearance: alert, in no apparent distress Head exam: Present: atraumatic, normocephalic, normal inspection Eye exam: Present: normal appearance, PERRL, EOMI. Absent: scleral icterus, con junctival injection, periorbital swelling ENT exam: Present: normal exam, mucous membranes moist Neck exam: Present: normal inspection. Absent: tenderness, meningismus, lymphadenopathy Respiratory exam: Present: normal lung sounds bilaterally. Absent: respiratory distress, wheezes, rales, rhonchi, stridor Cardiovascular Exam: Present: regular rate, normal rhythm, normal heart sounds. Absent: systolic murmur, diastolic murmur, rubs, gallop, clicks GI/Abdominal exam: Present: soft, normal bowel sounds. Absent: distended, tenderness, guarding, rebound, rigid Extremities exam: Present: normal inspection, full ROM, normal capillary refill. Absent: tenderness, pedal edema, joint swelling, calf tenderness Back exam: Present: normal inspection Neurological exam: Present: alert, oriented X3, CN II-XII intact Psychiatric exam: Present: normal affect, normal mood Skin exam: Present: warm, dry, intact, normal color. Absent: rash Course Vital Signs 12/09/22 12/09/22 03:30 05:45 Temperature 97.8 F Pulse Rate 77 77 Respiratory 16 15 Rate Blood Pressure 125/86 139/69 O2 Sat by Pulse 97 100 Oximetry - Reevaluation(s) Reevaluation #1: 12/09/22 03:54 Medical record is reviewed Reevaluation #2: 12/09/22 Patient symptoms are improved here in the ER Reevaluation #3: 12/09/22 Patient informed results and questions answered Reevaluation #4: 12/09/22 03:54 Differential Abdominal Pain Women: Appendicitis, Cholecystitis, diverticulosis, ischemic bowel, pancreatitis, hepatitis, UTI, gastroenteritis, AAA, incarcerated hernia, bowel obstruction, constipation, inflammatory bowel, hepatitis, peptic ulcer disease, splenic infarction, perforated viscus, vulvitis, ovarian torsion, PID, kidney stone, placenta abruption, this is not meant to be an all-inclusive list Reevaluation #5: 12/09/22 03:54 Was pt. sent in by a medical professional or institution? @ -no Did you speak to anyone other than the patient for history? @ -no Did you review nursing and triage notes? @ -agree Were old charts reviewed? @ -no Differential Diagnosis? @ -no EKG interpreted by me (3pts min.)? @ -[none] X-rays interpreted by me (1pt min.)? @ -[none] CT interpreted by me (1pt min.)? @ -[none] U/S interpreted by me (1pt. min.)? @ -[none] What testing was considered but not performed? (CT, X-rays, U/S, labs)? Why? @ no What meds were considered but not given? Why? @ -[none] Did you discuss the management of the patient with other professionals? @ -no Did you reconcile home meds? @ -[none] Was smoking cessation discussed for >3mins.? @ -[none] Was critical care preformed (if so, how long)? @ -[none] Were there social determinants of health that impacted care today? How? (Homelessness, low income, unemployed, alcoholism, drug addiction, transportation, low edu. Level, literacy, decrease access to med. care, half-way, rehab)? @ -no Was there de-escalation of care discussed even if they declined? (Discuss DNR or withdrawal of care, Hospice)? @ -no What co-morbidities impacted this encounter? (DM, HTN, Smoking, COPD, CAD, Cancer, CVA, Hep., AIDS, mental health diagnosis, sleep apnea, morbid obesity)? @ -no Was patient admitted / discharged? @ -dc Undiagnosed new problem with uncertain prognosis? @ -[none] Drug Therapy requiring intensive monitoring for toxicity (Heparin, Nitro, Insulin, Cardizem)? @ -[none] Were any procedures done? @ -[none] Diagnosis/symptom? @ -[default] Acute, or Chronic, or Acute on Chronic? @ -[default] Uncomplicated (without systemic symptoms) or Complicated (systemic symptoms)? @ -[default] Side effects of treatment? @ -[none] Exacerbation, Progression, or Severe Exacerbation] @ -[no] Poses a threat to life or bodily function? @ -[no] 12/09/22 23:36 Medical Decision Making - Medical Decision Making 42 female nonspecific abdominal pain. No cause found here in the ER patient can be discharged home - Lab Data Result diagrams: 12/09/22 04:06 12/09/22 04:06 Lab Results 12/09/22 12/09/22 Range/Units 04:06 04:06 WBC 6.0 (3.8-10.6) k/uL RBC 4.44 (3.80-5.40) m/uL Hgb 13.4 (11.4-16.0) gm/dL Hct 38.6 (34.0-46.0) % MCV 86.9 (80.0-100.0) fL MCH 30.1 (25.0-35.0) pg MCHC 34.6 (31.0-37.0) g/dL RDW 12.7 (11.5-15.5) % Plt Count 232 (150-450) k/uL MPV 8.6 Neutrophils % 64 % Lymphocytes % 27 % Monocytes % 5 % Eosinophils % 2 % Basophils % 1 % Neutrophils # 3.8 (1.3-7.7) k/uL Lymphocytes # 1.6 (1.0-4.8) k/uL Monocytes # 0.3 (0-1.0) k/uL Eosinophils # 0.1 (0-0.7) k/uL Basophils # 0.0 (0-0.2) k/uL Sodium 136 L (137-145) mmol/L Potassium 4.0 (3.5-5.1) mmol/L Chloride 106 (98-107) mmol/L Carbon Dioxide 25 (22-30) mmol/L Anion Gap 5 mmol/L BUN 16 (7-17) mg/dL Creatinine 0.76 (0.52-1.04) mg/dL Est GFR (CKD-EPI)AfAm >90 (>60 ml/min/1.73 sqM) Est GFR (CKD-EPI)NonAf >90 (>60 ml/min/1.73 sqM) Glucose 108 H (74-99) mg/dL Calcium 8.8 (8.4-10.2) mg/dL Phosphorus 3.7 (2.5-4.5) mg/dL Magnesium 2.1 (1.6-2.3) mg/dL Total Bilirubin 0.3 (0.2-1.3) mg/dL AST 23 (14-36) U/L ALT 27 (4-34) U/L Alkaline Phosphatase 67 (38-126) U/L Total Protein 6.8 (6.3-8.2) g/dL Albumin 3.8 (3.5-5.0) g/dL Amylase 47 (30-110) U/L Lipase 49 (23-300) U/L Disposition Clinical Impression: Abdominal pain Disposition: HOME SELF-CARE Condition: Good Instructions (If sedation given, give patient instructions): Abdominal Pain (ED) Is patient prescribed a controlled substance at d/c from ED?: No Referrals: Erick Enriquez DO [Primary Care Provider] - 1-2 days Time of Disposition: 05:20
[2022-12-09] MEDS ORDERED: SODIUM CHLORIDE 0.9% 500 ML 500 ML IV STA (03:47)
[2022-12-09 04:13] LABS: Basophils % (A) 1 %; Eosinophils # (A) 0.1 k/uL (0-0.7); Eosinophils % (A) 2 %; HCT 38.6 % (34.0-46.0); HGB 13.4 gm/dL (11.4-16.0); Lymphocytes # (A) 1.6 k/uL (1.0-4.8); Lymphocytes % (A) 27 %; MCH 30.1 pg (25.0-35.0); MCHC 34.6 g/dL (31.0-37.0); MCV 86.9 fL (80.0-100.0); Mean Platelet Volume 8.6; Monocytes # (A) 0.3 k/uL (0-1.0); Monocytes % (A) 5 %; Neutrophils # (A) 3.8 k/uL (1.3-7.7); Neutrophils % (A) 64 %; Platelet Count 232 k/uL (150-450); RBC 4.44 m/uL (3.80-5.40); RDW 12.7 % (11.5-15.5)
[2022-12-09 04:24] LABS: ALT 27 U/L (4-34); AST 23 U/L (14-36); African American GFR (CKD) >90 (>60 ml/min/1.73 sqM); Albumin 3.8 g/dL (3.5-5.0); Alkaline Phosphatase 67 U/L (38-126); Amylase 47 U/L (30-110); Anion Gap 5 mmol/L; Blood Urea Nitrogen 16 mg/dL (7-17); Calcium 8.8 mg/dL (8.4-10.2); Carbon Dioxide 25 mmol/L (22-30); Chloride 106 mmol/L (98-107); Glucose 108 mg/dL (74-99); Lipase 49 U/L (23-300); Magnesium 2.1 mg/dL (1.6-2.3); Non-African American GFR(CKD) >90 (>60 ml/min/1.73 sqM); Phosphorus 3.7 mg/dL (2.5-4.5); Sodium 136 mmol/L (137-145); Total Bilirubin 0.3 mg/dL (0.2-1.3); Total Protein 6.8 g/dL (6.3-8.2)
[2022-12-09] MEDS ORDERED: METOCLOPRAMIDE 5 MG/ML 2 ML VIAL IVP STA (05:24)
[2022-12-09] MEDS ORDERED: KETOROLAC 15 MG/ML 1 ML VIAL IVP STA (05:24)
[2022-12-09] MEDS ORDERED: DICYCLOMINE 10 MG/ML 2 ML AMP IM STA (05:24)
[2022-12-09] MEDS ORDERED: IBUPROFEN 600 MG STARTER PACK 4 TAB BTL PO STA (05:25)
[2022-12-09] MEDS ORDERED: traMADol 50 MG STARTER PACK 3 TAB BTL PO STA (05:25)
[2022-12-09] MEDS ORDERED: ONDANSETRON 4 MG ODT STARTER PACK 2 TAB BTL PO STA (05:25)
[2022-12-09 05:45] VITALS: BP 139/69; RESP 15
== END 2022-12-09 05:46 | disposition home or self-care (01) ==
LOC: EC 03:25
DX: K57.90 Diverticulosis of intestine, part unspecified, without perforation or abscess without bleeding (principal); J45.909 Unspecified asthma, uncomplicated; M19.90 Unspecified osteoarthritis, unspecified site; Z79.1 Long term (current) use of non-steroidal anti-inflammatories (NSAID); F41.9 Anxiety disorder, unspecified; Z88.6 Allergy status to analgesic agent
CPT/HCPCS: 99284 ×2; 96374 ×2; 96375 ×2; 96361; 96372 ×2; 36415; 80053; 82150; 83690; 83735; 84100; 85025; J0500; J2765; J1885; S0119

== ENCOUNTER 2024-03-01 15:51 | Emergency (ER) | payer SELFPAY ==
--- NOTE | 2024-03-01 16:21 | ED ---
Chest Pain HPI - General Chief Complaint: Chest Pain Stated Complaint: breast/chest/shoulder pain and weakness L side Time Seen by Provider: 03/01/24 16:09 Source: patient, RN notes reviewed, old records reviewed Mode of arrival: ambulatory Limitations: no limitations - History of Present Illness Initial Comments: This is a 43-year-old female with left-sided chest pain left shoulder pain left- sided back pain pain in her jaw and left arm. Patient has history of breast mass which she is undergoing evaluation for. Patient's pain is increased recently as she is going to follow-up for her breast mass. Patient states the pain is more severe currently causing her significant discomfort. No other complaints no shortness of breath no fevers no medical history patient takes no medications no modifying factors for symptoms MD Complaint: chest pain, other (Left-sided chest pain back pain shoulder pain) -: days(s) Onset: during rest, during exertion Pain Location: substernal, left chest Pain Radiation: LUE Severity: moderate Severity scale (1-10): 5 Quality: tightness Consistency: constant Improves With: nothing Worsens With: nothing Anginal Symptoms: dyspnea, sense of impending doom Other Symptoms: palpitations - Related Data Home Medications Medication Instructions Recorded Confirmed ALPRAZolam [Xanax] 0.5 mg PO DAILY PRN 10/16/22 03/01/24 Sertraline [Zoloft] 100 mg PO HS 10/16/22 03/01/24 Cephalexin [Keflex] 500 mg PO Q12HR 03/01/24 03/01/24 Colestipol HCl 1 tab PO BID 03/01/24 03/01/24 traZODone HCL [Desyrel] 50 mg PO HS 03/01/24 03/01/24 valACYclovir HCL [Valtrex] 500 mg PO BID PRN 03/01/24 03/01/24 Allergies Allergy/AdvReac Type Severity Reaction Status Date / Time aspirin AdvReac Petechiae Verified 03/01/24 19:29 Review of Systems ROS Statement: Those systems with pertinent positive or pertinent negative responses have been documented in the HPI. ROS Other: All systems not noted in ROS Statement are negative. EKG Findings - EKG Comments: EKG Findings:: EKG is sinus 70 MI 134 QRS 104 QTc 421 - EKG Results: EKG: interpreted by ERMD Past Medical History Past Medical History: Asthma, Fibromyalgia, GERD/Reflux, Osteoarthritis (OA) Additional Past Medical History / Comment(s): one gallstone, hx ulcer, hiatal hernia, diarrhea/constipation, hx kidney stones, hx frequent UTI's, tinnitus. MASSES TO LEFT BREAST History of Any Multi-Drug Resistant Organisms: None Reported Past Surgical History: Section, Cholecystectomy, Tubal Ligation Additional Past Surgical History / Comment(s): ureter stent, nasal surgery, labial hematoma removal, lasik eye surgery Past Anesthesia/Blood Transfusion Reactions: Previous Problems w/ Anesthesia, Postoperative Nausea & Vomiting (PONV) Additional Past Anesthesia/Blood Transfusion Reaction / Comment(s): spinal with C/S "vomiting, passed out, heart rate dropped-needed resuscitation" Past Psychological History: Anxiety Smoking Status: Never smoker Past Alcohol Use History: None Reported Past Drug Use History: None Reported - Past Family History Mother Family Medical History: Cancer Additional Family Medical History / Comment(s): lung General Exam Limitations: no limitations General appearance: alert, in no apparent distress Head exam: Present: atraumatic, normocephalic, normal inspection Eye exam: Present: normal appearance, PERRL, EOMI. Absent: scleral icterus, conjunctival injection, periorbital swelling ENT exam: Present: normal exam, mucous membranes moist Neck exam: Present: normal inspection. Absent: tenderness, meningismus, lymphadenopathy Respiratory exam: Present: normal lung sounds bilaterally. Absent: respiratory distress, wheezes, rales, rhonchi, stridor Cardiovascular Exam: Present: regular rate, normal rhythm, normal heart sounds. Absent: systolic murmur, diastolic murmur, rubs, gallop, clicks GI/Abdominal exam: Present: soft, normal bowel sounds. Absent: distended, tenderness, guarding, rebound, rigid Extremities exam: Present: normal inspection, full ROM, normal capillary refill. Absent: tenderness, pedal edema, joint swelling, calf tenderness Back exam: Present: normal inspection Neurological exam: Present: alert, oriented X3, CN II-XII intact Psychiatric exam: Present: normal affect, normal mood Skin exam: Present: warm, dry, intact, normal color. Absent: rash Course Vital Signs 03/01/24 03/01/24 03/01/24 16:01 17:41 21:18 Temperature 97.8 F 97.8 F Pulse Rate 73 79 75 Respiratory 20 16 16 Rate Blood Pressure 120/85 110/84 110/78 O2 Sat by Pulse 98 99 99 Oximetry - Reevaluation(s) Reevaluation #1: 03/01/24 16:35 Medical records reviewed Reevaluation #2: 03/01/24 18:57 Patient symptoms are improved Reevaluation #3: 03/01/24 18:57 Patient informed of results questions answered Reevaluation #4: Was pt. sent in by a medical professional or institution (, [facility], CONTENT EDITOR, urgent care, hospital, or fdc...) When possible be specific @ -no Did you speak to anyone other than the patient for history (EMS, parent, family, police, friend...)? What history was obtained from this source @ -no Did you review nursing and triage notes (agree or disagree)? Why? @ -agree Are old charts reviewed (outside hosp., previous admission, EMS record, old EKG, old radiological studies, urgent care reports/EKG's, fdc records)? Report findings @ -yes Differential Diagnosis (chest pain, altered mental status, abdominal pain women, abdominal pain men, vaginal bleeding, weakness, fever, dyspnea, syncope, headac he, dizziness, GI bleed, back pain, seizure, CVA, palpatations, mental health, musculoskeletal)? @ -prior EKG interpreted by me (3pts min.). @ -yes X-rays interpreted by me (1pt min.). @ -yes negative for acute disease CT interpreted by me (1pt min.). @ -Yes negative for acute disease U/S interpreted by me (1pt. min.). @ -no What testing was considered but not performed or refused? (CT, X-rays, U/S, labs)? Why? @ -none What meds were considered but not given or refused? Why? @ -none Did you discuss the management of the patient with other professionals (professionals i.e. [facility] Haynes, CONTENT EDITOR, lab, RT, psych nurse, manager social work, gluing machine operator electronic, teacher, [place] police officer, geriatric case manager)? Give summary @ -no Was smoking cessation discussed for >3mins.? @ -no Was critical care preformed (if so, how long)? @ -no Were there social determinants of health that impacted care today? How? (Homelessness, low income, unemployed, alcoholism, drug addiction, transportation, low edu. Level, literacy, decrease access to med. care, group home, rehab)? @ -none Was there de-escalation of care discussed even if they declined (Discuss DNR or withdrawal of care, Hospice)? DNR status @ -no What co-morbidities impacted this encounter? (DM, HTN, Smoking, COPD, CAD, Cancer, CVA, ARF, Chemo, Hep., AIDS, mental health diagnosis, sleep apnea, morbid obesity)? @ -none Was patient admitted / discharged? Hospital course, mention meds given and route, prescriptions, significant lab abnormalities, going to OR and other pertinent info. @ - 43 female with multiple complaints with main complaint surrounding chest pain. Patient has no acute findings here in the ER and can be discharged home Discharge Undiagnosed new problem with uncertain prognosis? @ -no Drug Therapy requiring intensive monitoring for toxicity (Heparin, Nitro, Insulin, Cardizem)? @ -no Were any procedures done? @ -no Diagnosis/symptom? @ -Chest pain Acute, or Chronic, or Acute on Chronic? @ -Acute Uncomplicated (without systemic symptoms) or Complicated (systemic symptoms)? @ -Complicated Side effects of treatment? @ -no Exacerbation, Progression, or Severe Exacerbation? @ -exacerbation Poses a threat to life or bodily function? How? (Chest pain, [place], [place], pneumonia, PE, COPD, DKA, ARF, appy, cholecystitis, CVA, Diverticulitis, Homicidal, Suicidal, threat to staff... and all critical care pts) @ -yes with significant chest pain Reevaluation #5: Differential Chest Pain: Stable Angina, Unstable Angina, STEMI, NSTEMI Aortic Dissection, Pneumothorax, Musculoskeletal, Esophageal Spasm GERD, Cholecystitis, Pancreatitis, Zoster, this is not meant to be an all-inclusive list. Chest Pain MDM - MDM 43 female with multiple complaints with main complaint surrounding chest pain. Patient has no acute findings here in the ER and can be discharged home Disposition Clinical Impression: Atypical chest pain, Chest pain Disposition: HOME SELF-CARE Condition: Good Instructions (If sedation given, give patient instructions): Chest Pain (ED) Is patient prescribed a controlled substance at d/c from ED?: No Referrals: Nonstaff,Physician [Primary Care Provider] - 1-2 days Time of Disposition: 20:00
[2024-03-01 16:27] VITALS: TEMP 97.8
[2024-03-01 17:13] LABS: Basophils % (A) 1 %; Eosinophils # (A) 0.2 k/uL (0-0.7); Eosinophils % (A) 3 %; HCT 38.7 % (34.0-46.0); HGB 12.8 gm/dL (11.4-16.0); Lymphocytes % (A) 32 %; MCH 28.9 pg (25.0-35.0); MCHC 33.2 g/dL (31.0-37.0); MCV 87.2 fL (80.0-100.0); Mean Platelet Volume 8.3; Monocytes # (A) 0.3 k/uL (0-1.0); Monocytes % (A) 5 %; Neutrophils # (A) 3.6 k/uL (1.3-7.7); Neutrophils % (A) 58 %; Platelet Count 239 k/uL (150-450); RBC 4.44 m/uL (3.80-5.40); RDW 13.1 % (11.5-15.5); WBC 6.1 k/uL (3.8-10.6)
[2024-03-01 17:26] LABS: ALT 16 U/L (4-34); AST 20 U/L (14-36); African American GFR (CKD) 90 (>60 ml/min/1.73 sqM); Albumin 3.8 g/dL (3.5-5.0); Alkaline Phosphatase 78 U/L (38-126); Anion Gap 4 mmol/L; Blood Urea Nitrogen 15 mg/dL (7-17); Calcium 8.8 mg/dL (8.4-10.2); Carbon Dioxide 22 mmol/L (22-30); Chloride 109 mmol/L (98-107); Glucose 97 mg/dL (74-99); Lipase 67 U/L (23-300); Non-African American GFR(CKD) 78 (>60 ml/min/1.73 sqM); Potassium 4.2 mmol/L (3.5-5.1); Sodium 135 mmol/L (137-145); Total Bilirubin 0.3 mg/dL (0.2-1.3); Total Protein 6.8 g/dL (6.3-8.2)
[2024-03-01 17:27] LABS: INR 0.9 (<1.2); Partial Thromboplastin Time 25.7 sec (22.0-30.0)
[2024-03-01 17:34] LABS: NT-Pro-B-Type Natriuretic Pept 25 pg/mL
[2024-03-01] MEDS: MORPHINE SULFATE 4 MG/ML SYRINGE IVP STA (17:38)
[2024-03-01] MEDS: SODIUM CHLORIDE 0.9% 1,000 ML IV STA (17:41)
--- NOTE | 2024-03-01 17:42 | XR ---
EXAMINATION TYPE: XR chest 2V DATE OF EXAM: 03/01/2024 5:07 PM CLINICAL INDICATION:Female, 43 years old with history of Chest Pain; [facility] COMPARISON: Chest radiographs from 03/01/2024 TECHNIQUE: XR chest 2V Frontal and lateral views of the chest. FINDINGS: Lungs/Pleura: There is no evidence of pleural effusion, focal consolidation, or pneumothorax. Pulmonary vascularity: Unremarkable. Heart/mediastinum: Cardiomediastinal silhouette is unremarkable. Musculoskeletal: No acute osseous pathology. IMPRESSION: No acute cardiopulmonary disease/process.
[2024-03-01 18:18] VITALS: RESP 16
--- NOTE | 2024-03-01 19:14 | CT ---
EXAMINATION TYPE: CT angio chest CT DLP: 813.8 mGycm, Automated exposure control for dose reduction was used. DATE OF EXAM: 03/01/2024 6:21 PM COMPARISON: Same day chest x-ray CLINICAL INDICATION:Female, 43 years old with history of cp; Breast, chest and shoulder pain. Left si de weakness. TECHNIQUE/CONTRAST: CTA scan of the thorax is performed with noncontrast imaging of the chest then with IV Contrast, saul ent injected with 100 mL of Isovue 370, multiplanar reformats were generated. MIP images are created and reviewed these are created on a separate workstation.. FINDINGS: There is adequate contrast bolus and timing. PULMONARY ARTERIES: There is no evidence for a filling defect within the pulmonary vasculature to sug gest acute pulmonary embolism. Pulmonary trunk is normal in size. Trunk measures 2 CM. HEART: Normal heart size. No appreciable coronary calcifications. No appreciable pericardial effusio n. AORTA: No appreciable aortic calcification or evidence of intramural hematoma. Ascending aorta is 2. 6 CM, descending is 1.9 CM. Aorta is considered normal in size. 3 vessel branch pattern with no sign ificant abnormalities of the branch vessels. LOWER NECK: No significant findings. MEDIASTINUM: No enlarged lymph nodes. SOFT TISSUES/LYMPH NODES: Unremarkable soft tissues. No axillary adenopathy. LUNGS/ PLEURA: Mild dependent subsegmental atelectasis. No evidence of consolidation, pleural effusio n, or pneumothorax. AIRWAY: Central airways are patent. MUSCULOSKELETAL: No acute osseous abnormality. UPPER ABDOMEN: No significant findings. Gallbladder is not seen and there is a small calcification se en in its expected location. If the gallbladder is present, this may represent contracted gallbladder with a small gallstone. A couple of areas of small cortical scarring of the right kidney are seen. IMPRESSION: 1. No evidence of pulmonary embolism. 2. No evidence of aortic aneurysm or dissection. 3. No other acute chest process demonstrated.
[2024-03-01 19:29] LABS: Appearance,Urine Clear (Clear); Bilirubin,Urine Negative (Negative); Blood,Urine Negative (Negative); Color,Urine Colorless; Glucose,Urine (UA) Negative (Negative); Ketones,Urine Negative (Negative); Leukocyte Esterase,Urine Negative (Negative); Nitrite,Urine Negative (Negative); PH, Urine 5.5 (5.0-8.0); Protein,Urine Negative (Negative); Specific Gravity,Urine >1.050 (1.001-1.035); Urobilinogen,Urine <2.0 mg/dL (<2.0)
[2024-03-01] MEDS: IBUPROFEN 600 MG STARTER PACK 4 TAB BTL PO STA (21:01)
[2024-03-01] MEDS: traMADol 50 MG STARTER PACK 3 TAB BTL PO STA (21:01)
[2024-03-01 21:19] VITALS: BP 110/78; PULSE 75
== END 2024-03-01 21:18 | disposition home or self-care (01) ==
LOC: EC 15:51
DX: R07.89 Other chest pain (principal); Z88.6 Allergy status to analgesic agent; Z90.49 Acquired absence of other specified parts of digestive tract
CPT/HCPCS: 36415; 93005; 83880; 80053; 83690; 83735; 84484; 85025; 85610; 85730; 81003; 71046; 71275; 99285; 96374; 96361; J2270; Q9967